=== PATIENT | male | born 1965 | race Two or more races ===

== ENCOUNTER 2025-03-30 14:24 | Inpatient (IN) | payer MEDICAID, OTHER ==
[~2025-03-30] VITALS: Ht 177.8 cm; Wt 74.9 kg
[2025-03-30 15:04] LABS: Hematocrit 43.3 % (41.0-53.0); Hemoglobin 15.0 g/dL (13.5-17.5); Mean Corpuscular Hemoglobin 33.7 pg (28.0-32.0); Mean Corpuscular Volume 97.2 fL (80.0-100.0); Nucleated Red Blood Cells % 0.0 %
[2025-03-30 15:07] LABS: Chloride 105 mmol/L (98-107); Potassium 4.3 mmol/L (3.5-5.1); Sodium 142 mmol/L (136-145)
--- NOTE | 2025-03-30 15:07 | ED.PDOC ---
HPI Comments 49-year-old male presents to the ED for chief complaint of palpitations started at 10:00 a.m. today while sitting down on his couch. Patient states palpitations are more notable when he is at rest however when he gets up in ambulance around, palpitations become less notable. Patient denies any past cardiac history, states he has no medical history in his not on any daily medication at this time. He denies any chest pain, shortness of breath, nausea, fever, chills, leg swelling. Chief Complaint: Palpitations Time Seen by MD: 14:40 Reviewed Notes: Nurses Notes, Medications, Allergies Allergies: Coded Allergies: NO KNOWN ALLERGIES (Unverified , 03/30/25) Information Source: Patient Mode of Arrival: Ambulatory Severity: Moderate Timing: Hours Duration: Since onset Onset: At Rest Cardiac Risk Factors: None PE Risk Factors: None History of: None Modifying Factors: Nothing Associated Signs and Symptoms: Palpitations Past Medical History PAST MEDICAL HISTORY: Denies Surgical History: Denies all surgeries Family History Family History: Reviewed,noncontributory to illness, No family hx of Cancer, No family hx of DM, No family hx of Heart allan, No family hx of HTN, No family hx ofKidney allan, No family hx of Liver allan, No family hx of Lung allan, No family hx of Stroke Social History Smoker: Non-Smoker Alcohol: Denies ETOH Use Drugs: Denies Drug Use Lives In: Home Constitutional: denies: chills, diaphoresis, fatigue, fever, malaise, sweats, weakness, others EENTM: denies: blurred vision, double vision, ear bleeding, ear discharge, ear drainage, ear pain, ear ringing, eye pain, eye redness, hearing loss, mouth pain, mouth swelling, nasal discharge, nose bleeding, nose congestion, nose pain, photophobia, tearing, throat pain, throat swelling, voice changes, others Respiratory: denies: cough, hemoptysis, orthopnea, SOB at rest, shortness of breath, SOB with excertion, stridor, wheezing, others Cardiovascular: reports: palpitations; denies: chest pain, dizzy spells, diaphoresis, Dyspnea on exertion, edema, irregular heart beat, left arm pain, lightheadedness, PND, syncope, others Gastrointestinal: denies: abdomen distended, abdominal pain, blood streaked bowels, constipated, diarrhea, dysphagia, difficulty swallowing, hematemesis, melena, nausea, poor appetite, poor fluid intake, rectal bleeding, rectal pain, vomiting, others Genitourinary: denies: burning, dysuria, flank pain, frequency, hematuria, incontinence, penile discharge, penile sore, pain, testicle pain, testicle swe lling, urgency, others Neurological: denies: dizziness, fainting, headache, left sided numbness, left sided weakness, numbness, paresthesia, pre-existing deficit, right sided numbness, right sided weakness, seizure, speech problems, tingling, tremors, weakness, others Musculoskeletal: denies: back pain, gout, joint pain, joint swelling, muscle pain, muscle stiffness, neck pain, others Integumetry: denies: bruises, change in color, change in hair/nails, dryness, laceration, lesions, lumps, rash, wounds, others Allergic/Immunocompromised: denies: Difficulty Healing, Frequent Infections, Hives, Itching, others Hematologic/Lymphatic: denies: anemia, blood clots, easy bleeding, easy bruising, swollen glands, others Endocrine: denies: excessive hunger, excessive sweating, excessive thirst, excessive urination, flushing, intolerance to cold, intolerance to heat, unexplained weight gain, unexplained weight loss, others Psychiatric: denies: anxiety, bipolar disorder, depression, hopeless, panic disorder, schizophrenia, sleepless, suicidal, others All Other Systems: Reviewed and Negative Physical Exam General Appearance: Moderate Distress HEENT: Normal ENT Inspection, Pharynx Normal, TMs Normal Neck: Full Range of Motion, Non-Tender, Normal, Normal Inspection Respiratory: Chest Non-Tender, Lungs Clear, No Accessory Muscle Use, No Respiratory Distress, Normal Breath Sounds Cardiovascular: No Edema, No JVD, No Murmur, No Gallop, Normal Peripheral Pulses, Regular Rate/Rhythm Breast Exam: Deferred Gastrointestinal: No Organomegaly, Non Tender, No Pulsatile Mass, Normal Bowel Sounds, Soft Genitalia: Deferred Pelvic: Deferred Rectal: Deferred Extremities: No calf tenderness, Normal capillary refill, Normal inspection, Normal range of motion, Non-tender, No pedal edema Musculoskeletal : Apperance: Normal Neurologic: Alert, pin maker II-XII nml as Tested, No Motor Deficits, Normal Affect, Normal Mood, No Sensory Deficits Cerebellar Function: Normal Reflexes: Normal Skin: Dry, Normal Color, Warm Peripheral Pulses: 3+ Radial (R), 3+ Radial (L) Lymphatic: No Adenopathy Was a procedure done? Was a procedure done?: No CP Differential Dx Differential Diagnosis: A-fib, A-Flutter, Angina, Anxiety / Panic Attack, Atrial Dysrhythmia, Digoxin Toxicity, Electrolyte Disorder, Sinus Tachycardia X-Ray, Labs, Meds, VS Vital Signs Date Time Temp Pulse Resp B/P (MAP) Pulse Ox O2 Delivery O2 Flow Rate FiO2 03/30/25 17:03 98.4 61 16 126/76 (93) 97 98.4 03/30/25 14:37 68 03/30/25 14:27 97.9 72 19 133/78 96 97.9 Lab Test 03/30/25 16:13 03/30/25 14:43 Range/Units Troponin I High Sensitivity 15 16 </=54 ng/L White Blood Count 5.4 4.4-10.8 10^3/uL Red Blood Count 4.46 L 4.5-5.90 10^6/uL Hemoglobin 15.0 13.5-17.5 g/dL Hematocrit 43.3 41.0-53.0 % Mean Corpuscular Volume 97.2 80.0-100.0 fL Mean Corpuscular Hemoglobin 33.7 H 28.0-32.0 pg Mean Corpuscular Hemoglobin Concent 34.6 32.0-36.0 g/dL Red Cell Distribution Width 12.8 11.8-14.3 % Platelet Count 203 140-450 10^3/uL Mean Platelet Volume 8.2 6.9-10.8 fL Neutrophils (%) (Auto) 48.7 37.0-80.0 % Lymphocytes (%) (Auto) 37.6 10.0-50.0 % Monocytes (%) (Auto) 10.3 0.0-12.0 % Eosinophils (%) (Auto) 1.8 0.0-7.0 % Basophils (%) (Auto) 1.6 0.0-2.0 % Neutrophils # (Auto) 2.6 1.6-8.6 10 ^3/uL Lymphocytes # (Auto) 2.0 0.4-5.4 10 ^3/uL Monocytes # (Auto) 0.6 0-1.3 10 ^3/uL Eosinophils # (Auto) 0.1 0-0.8 10 ^3/uL Basophils # (Auto) 0.1 0-0.2 10 ^3/uL Nucleated Red Blood Cells 0.0 % Sodium Level 142 136-145 mmol/L Potassium Level 4.3 3.5-5.1 mmol/L Chloride Level 105 98-107 mmol/L Carbon Dioxide Level 30 20-31 mmol/L Anion Gap 7 5-15 Blood Urea Nitrogen 16 9-23 mg/dL Creatinine 1.01 0.700-1.30 mg/dL Glomerular Filtration Rate Calc 91 >90 mL/min BUN/Creatinine Ratio 15.8 10.0-20.0 Serum Glucose 171 H 74-106 mg/dL Calcium Level 9.2 8.7-10.4 mg/dL Patient alert. Complaining of palpitation. Vitals stable. Cardiac marker within normal limits. Blood sugar elevated. Hemoglobin within normal limits. Establish intravenous access. Has risk factors for coronary artery disease. Propranolol. Explained to the patient that he will need further studies. Continue monitoring. Time of 1ST Reevaluation: 15:06 Reevaluation 1ST: Unchanged Patient Education/Counseling: Diagnosis, Treatment, Prognosis Family Education/Counseling: No Family Present SEPSIS Sepsis Screen Date sepsis recognized/suspect: Mar 30, 2025 Time Sepsis recognized/suspect: 143 Recent Procedure: No On Antibiotic Therapy: No Respiratory Rate >20: No Heart Rate >90: No Temp<36 C (96.8 F) or >38.3 C: No SBP <90 or MAP <65 mmHG: No New Acute Mental Status Change: No Is the patient on CPAP, BIPAP,: No Physician Orders Electrocardigram (03/30/25 14:41) Troponin-I Hs (03/30/25 17:53) Vital Signs Date Time Temp Pulse Resp B/P (MAP) Pulse Ox O2 Delivery O2 Flow Rate FiO2 03/30/25 17:03 98.4 61 16 126/76 (93) 97 98.4 03/30/25 14:37 68 03/30/25 14:27 97.9 72 19 133/78 96 97.9 Laboratory Tests Test 03/30/25 14:43 White Blood Count 5.4 10^3/uL (4.4-10.8) Departure 1 Departure Time of Disposition: 17:08 Impression: Primary Impression: Chest pain of unknown etiology Additional Impressions: Palpitations Uncontrolled diabetes mellitus Qualified Codes: E13.65 - Other specified diabetes mellitus with hyperglyc emia Disposition: 09 ADMITTED INPATIENT Admit to: Med Surg Condition: Guarded Critical Care Note Critical Care Time?: No Stability Stability form required: No Heart Score Heart Score: Heart Score Response (Comments) Value History Slightly Suspicious 0 EKG Normal 0 Age 45-64 1 Risk Factors >3 or Hx ASHD 2 Troponin Normal limit 0 Total 3 I personally scribed for TATYANA CHUN MD ([email or web address]) on 03/30/25 at 15:07. Electronically submitted by Shannon Ruiz ([facility]). TATYANA CHUN MD Mar 30, 2025 15:07
[2025-03-30 15:08] LABS: Anion Gap 7 (5-15); Calcium 9.2 mg/dL (8.7-10.4); Carbon Dioxide 30 mmol/L (20-31)
[2025-03-30 15:13] LABS: BUN/Creatinine Ratio 15.8 (10.0-20.0); Blood Urea Nitrogen 16 mg/dL (9-23)
[2025-03-30 15:17] LABS: Glucose 171 mg/dL (74-106)
[2025-03-30] MEDS ORDERED: ONDANSETRON HCL 4 MG/2 ML VIAL IV PRN (20:45)
[2025-03-30] MEDS ORDERED: ACETAMINOPHEN 325 MG TAB PO PRN (20:45)
[2025-03-30] MEDS ORDERED: DOCUSATE SOD 100 MG CAP PO PRN (20:45)
[2025-03-30] MEDS ORDERED: HYDROcodone-ACET 5/325MG TAB PO PRN (20:45)
[2025-03-30] MEDS ORDERED: NITROGLYCERIN 0.4 MG SL TAB SL PRN (21:15)
[2025-03-30] MEDS ORDERED: MORPHINE SULFATE INJ 2 MG/ml SYRG IV PRN (21:15)
--- NOTE | 2025-03-30 21:16 | DVHHP2 ---
History of Present Illness Reason for Visit: Palpitations History of Present Illness The patient is a 49 year male who denies past medical history presented to [facility] ED with complaint of palpitations associated with chest pain. Patient reports palpitations are more notable when he is at rest however when he gets up in ambulance around, palpitations become less notable. Patient was seen and evaluated in the ED, laboratory data shows WBC 5.4, platelets 203, sodium 142, potassium 4.3, BUN 16, creatinine 1.01, GFR 91, glucose 171, hemoglobin A1c 7.2, calcium 9.2, troponin 60, blood pressure 118/73, heart rate 60, temperature 98.2 F, O2 saturation 97% on room air. Patient was found to have new onset type 2 diabetes mellitus. Please see medication orders section in the computer. On my assessment, patient denied chest pain at this moment, no headache, dizziness, diaphoresis, shortness of breaths, no abdominal pain, diarrhea, nausea, vomiting, fever, no chills. Patient was admitted for further evaluation and medical management. Past Medical History Denies past medical history Past Surgical History Denies all surgeries Family History Reviewed, contributory to the management of this case; father and mother has for diabetes mellitus. Past Social History The patient lives at home, denies smoking, alcohol or illicit drugs abuse. Review of Systems Constitutional: No: Fever, Chills, Sweats, Weakness, Malaise, Other Eyes: No: Pain, Vision change, Conjunctivae inflammation, Eyelid inflammation, Other, Redness ENT: No: Ear pain, Ear discharge, Nose pain, Nose discharge, Nose congestion, Mouth pain, Mouth swelling, Throat pain, Throat swelling, Other Respiratory: No: Cough, Dry, Shortness of breath, SOB with excertion, Wheezing, Hemoptysis, Pleuritic Pain, Sputum, Wheezing, Other Cardiovascular: Chest Pain, Palpitations; No: Orthopnea, Paroxysmal Noc. Dyspnea, Edema, Lt Headedness, Other Gastrointestinal: No: Nausea, Vomiting, Abdominal Pain, Diarrhea, Constipation, Melena, Hematochezia, Other Genitourinary: No Dysuria, No Frequency, No Incontinence, No Hematuria, No Re tention, No Other Musculoskeletal: No: other, neck pain, shoulder pain, arm pain, back pain, hand pain, leg pain, foot pain Skin: No: Rash, Lesions, Jaundice, Bruising, Other Neurological: No: Weakness, Numbness, Incoordination, Change in speech, Confusion, Seizures, Other Allergies: Coded Allergies: NO KNOWN ALLERGIES (Unverified , 03/30/25) Medications Current Medications Medications Dose Ordered Sig/Enoch Route Start Time Stop Time Status Last Admin Dose Admin Sodium Chloride 10 ml Q8HR IV 03/30/25 22:00 Acetaminophen/ Hydrocodone Bitart 1 tab Q4HP PRN PO 03/30/25 20:45 Ondansetron HCl 4 mg Q4HP PRN IV 03/30/25 20:45 Docusate Sodium 100 mg BIDPRN PRN PO 03/30/25 20:45 Acetaminophen 650 mg Q6HP PRN PO 03/30/25 20:45 Exam Vital Signs Vital Signs Date Time Temp Pulse Resp B/P (MAP) Pulse Ox O2 Delivery O2 Flow Rate FiO2 03/30/25 20:29 98.2 59 16 118/73 (88) 96 98.2 General Appearance: Alert, Oriented X3, Cooperative, No acute distress HEENT: Atraumatic, PERRLA, EOMI, Mucous membr. moist/pink Respiratory: Clear to auscultation, Normal air movement Cardiovascular: Regular rate, Normal S1, Normal S2, No murmurs Abdominal: Normal bowel sounds, Soft, No tenderness, No hepatospenomegaly, No masses Extremities: No clubbing, No cyanosis, No edema, Normal pulses, No tenderness/swelling Skin: No rashes, No significant lesion Neuro: Normal gait, Normal speech, Strength at 5/5 X4 ext, Normal tone, Sensation intact, Cranial nerves 3-12 NL, Reflexes 2+ Psych/Mental Status: Mental status NL, Mood NL Labs/Xrays Labs Test 03/30/25 18:09 03/30/25 14:43 Range/Units Troponin I High Sensitivity 16 </=54 ng/L White Blood Count 5.4 4.4-10.8 10^3/uL Red Blood Count 4.46 L 4.5-5.90 10^6/uL Hemoglobin 15.0 13.5-17.5 g/dL Hematocrit 43.3 41.0-53.0 % Mean Corpuscular Volume 97.2 80.0-100.0 fL Mean Corpuscular Hemoglobin 33.7 H 28.0-32.0 pg Mean Corpuscular Hemoglobin Concent 34.6 32.0-36.0 g/dL Red Cell Distribution Width 12.8 11.8-14.3 % Platelet Count 203 140-450 10^3/uL Mean Platelet Volume 8.2 6.9-10.8 fL Neutrophils (%) (Auto) 48.7 37.0-80.0 % Lymphocytes (%) (Auto) 37.6 10.0-50.0 % Monocytes (%) (Auto) 10.3 0.0-12.0 % Eosinophils (%) (Auto) 1.8 0.0-7.0 % Basophils (%) (Auto) 1.6 0.0-2.0 % Neutrophils # (Auto) 2.6 1.6-8.6 10 ^3/uL Lymphocytes # (Auto) 2.0 0.4-5.4 10 ^3/uL Monocytes # (Auto) 0.6 0-1.3 10 ^3/uL Eosinophils # (Auto) 0.1 0-0.8 10 ^3/uL Basophils # (Auto) 0.1 0-0.2 10 ^3/uL Nucleated Red Blood Cells 0.0 % Sodium Level 142 136-145 mmol/L Potassium Level 4.3 3.5-5.1 mmol/L Chloride Level 105 98-107 mmol/L Carbon Dioxide Level 30 20-31 mmol/L Anion Gap 7 5-15 Blood Urea Nitrogen 16 9-23 mg/dL Creatinine 1.01 0.700-1.30 mg/dL Glomerular Filtration Rate Calc 91 >90 mL/min BUN/Creatinine Ratio 15.8 10.0-20.0 Serum Glucose 171 H 74-106 mg/dL Hemoglobin A1c 7.2 H <5.7 % A1C Calcium Level 9.2 8.7-10.4 mg/dL SEPSIS Sepsis Screen Date sepsis recognized/suspect: Mar 30, 2025 Time Sepsis recognized/suspect: 1431 Recent Procedure: No On Antibiotic Therapy: No Respiratory Rate >20: No Heart Rate >90: No Temp<36 C (96.8 F) or >38.3 C: No SBP <90 or MAP <65 mmHG: No New Acute Mental Status Change: No Is the patient on CPAP, BIPAP,: No Physician Orders Electrocardigram (03/30/25 14:41) Allergies (03/30/25 20:35) Code Status (03/30/25 20:35) Sodium Chloride Lock (Saline Lock Ns) (03/30/25 22:00) Oxygen Per Hour (03/30/25 20:35) Hydrocodone-Acet 5/325mg Tab ([place] 5/32 (03/30/25 20:45) Ondansetron Hcl (Zofran) (03/30/25 20:45) Docusate Sodium Capsule (Colace Capsule) (03/30/25 20:45) Fall Risk Precautions In Place QSHIFT (03/30/25 20:35) Complete Blood Count (03/31/25 04:00) Comprehensive Metabolic Panel (03/31/25 04:00) Cardiac Diet-2gna,Lofat,Lochol (03/31/25 Breakfast) Condition: Serious (03/30/25 20:35) Acetaminophen Tablet (Tylenol Tablet) (03/30/25 20:45) Maintain Bed Rest (03/30/25 20:35) Sequential Compression Device (03/30/25 ) Admit (03/30/25 21:14) Nitroglycerin Sublingual (Ntrostat Subli (03/30/25 21:15) Morphine Sulfate Injection (03/30/25 21:15) Stat Ekg For Chest Pain (03/30/25 21:14) Notify Md Of Changes From Base (03/30/25 21:14) Food Beverage Supervisor For 24 Hours (03/30/25 21:14) Emergency Dysrhythmia Protocol (03/30/25 21:14) Rhythm Strips Once Every Shift (03/30/25 21:14) Oxygen By Nasal Cannula (03/30/25 21:14) Vital Signs Date Time Temp Pulse Resp B/P (MAP) Pulse Ox O2 Delivery O2 Flow Rate FiO2 03/30/25 20:29 98.2 59 16 118/73 (88) 96 98.2 03/30/25 17:03 98.4 61 16 126/76 (93) 97 98.4 03/30/25 14:37 68 03/30/25 14:27 97.9 72 19 133/78 96 97.9 Laboratory Tests Test 03/30/25 14:43 White Blood Count 5.4 10^3/uL (4.4-10.8) Assessment/Plan Assessment/Plan Chest pain of unknown etiology New onset type 2 diabetes mellitus Palpitations Uncontrolled diabetes mellitus Plan 1. Admit to telemetry unit 2. Breathing treatment 3. Pain control management 4. Management of fluids and electrolytes 5. Consultation for hospitalist 6. Diagnostic tests chest x-ray 7. DVT prophylaxis-on SCDs 8. Repeat labs CBC, CMP in a.m. 9. Continue with current medical management 10. Treatment plan discussed with patient/daughter and RN. Patient/daughter verbalized understanding. Plan discussed with: Patient, Other (RN) My Orders Orders - BRISA BRAR DNP Procedure Category Date Status Time Allergies MARYLIN 03/30/25 In Process 20:35 Code Status CODE 03/30/25 Transmitted 20:35 Sodium Chloride Lock PHA 03/30/25 In Process (Saline Lock Ns) 22:00 Oxygen Per Hour RT 03/30/25 Transmitted 20:35 Hydrocodone-Acet PHA 03/30/25 In Process 5/325mg Tab ([place] 20:45 Ondansetron Hcl PHA 03/30/25 In Process (Zofran) 20:45 Docusate Sodium PHA 03/30/25 In Process Capsule (Colace 20:45 Fall Risk Precautions [facility] 03/30/[address] 20:35 Complete Blood Count LAB 03/31/25 Verified 04:00 Comprehensive LAB 03/31/25 Verified Metabolic Panel 04:00 Cardiac DIET 03/31/25 Transmitted Diet-2gna,Lofat,Lochol Breakfast Condition: Serious MARYLIN 03/30/25 In Process 20:35 Acetaminophen Tablet PHA 03/30/25 In Process (Tylenol Tablet) 20:45 Maintain Bed Rest MARYLIN 03/30/25 In Process 20:35 Sequential M[place]LIN 03/30/25 In Process Compression Device Admit ADMIT 03/30/25 Verified 21:14 Nitroglycerin [facility] 03/30/25 Verified Sublingual (Ntrostat 21:15 Morphine Sulfate PHA 03/30/25 Verified Injection 21:15 Stat Ekg For Chest [facility] 03/30/25 Verified Pain 21:14 Notify Md Of Changes [facility] 03/30/25 Verified From Base 21:14 Food Beverage Supervisor For [facility] 03/30/25 Verified 24 Hours 21:14 Emergency Dysrhythmia [facility] 03/30/25 Verified Protocol 21:14 Rhythm Strips Once [facility] 03/30/25 Verified Every Shift 21:14 Oxygen By Nasal RT 03/30/25 Verified Cannula 21:14 Problem List: (1) Chest pain of unknown etiology (2) New onset type 2 diabetes mellitus (3) Palpitations (4) Uncontrolled diabetes mellitus Date of Service: Mar 30, 2025 Billing Provider: BRISA BRAR DNP Common Visit Codes: [id number] INP/OBS CARE (HIGH) BRISA BRAR DNP Mar 30, 2025 21:16
[2025-03-30] MEDS: SODIUM CHLOR 0.9% PF (SALINE LOCK) 10ML VIAL/SYR IV SCH (22:00)
[2025-03-31] VITALS (10 sets, daily range): BP systolic 101–124; BP diastolic 61–77; PULSE 53–76; RESP 14–18; TEMP 97.3–98.7; O2SAT 97–99
[2025-03-31] MEDS ORDERED: DEXTROSE (50%) 50ML SYRG IV PRN (03:45)
[2025-03-31] MEDS: ACCU-CHEK COMFORT CURVE STRIP VI SCH (06:30)
[2025-03-31] MEDS: InsuLIN REG 1unit/0.01ml Soln (100units/ml) SC SCH ×2 (06:30→21:05)
[2025-03-31 07:21] LABS: Hematocrit 41.9 % (41.0-53.0); Hemoglobin 14.6 g/dL (13.5-17.5); Mean Corpuscular Hemoglobin 34.0 pg (28.0-32.0); Mean Corpuscular Volume 97.5 fL (80.0-100.0); Nucleated Red Blood Cells % 0.1 %
[2025-03-31 07:36] LABS: Alanine Aminotransferase 13 U/L (7-40); Albumin 3.7 g/dL (3.2-4.8); Alkaline Phosphatase 90 U/L (46-116); Anion Gap 8 (5-15); BUN/Creatinine Ratio 16.1 (10.0-20.0); Blood Urea Nitrogen 15 mg/dL (9-23); Calcium 9.0 mg/dL (8.7-10.4); Carbon Dioxide 29 mmol/L (20-31); Chloride 105 mmol/L (98-107); Potassium 4.1 mmol/L (3.5-5.1); Sodium 142 mmol/L (136-145); Total Protein 6.2 g/dL (5.7-8.2)
[2025-03-31 07:40] LABS: Bilirubin, Total 1.6 mg/dL (0.2-1.0); Glucose 146 mg/dL (74-106)
--- NOTE | 2025-03-31 17:53 | DVHSR ---
APPROVED REPORT EXAM: Two-dimensional and M-mode echocardiogram with Doppler and color Doppler. Blood Pressure: 115/73 mmHg INDICATION Chest Pain RISK FACTORS Height: 5'10", Weight: 165 DIMENSIONS LVDd 5.0 (3.8-5.7cm) LA (2D) 3.5 (1.9-4.0cm) Aortic Root 3.7 (2.0-3.7cm) LVDs 3.2 (2.5-4.0cm) LA (MM) (1.9-4.0cm) Aortic Cusp Exc 1.9 (1.5-2.0cm) EF (%) 65.0 (55-70%) Rt. Atrium 3.9 (1.9-4.0cm) Asc. Aorta cm IVSd 1.0 (0.7-1.1cm) RV (D) 3.4 (1.8-2.4cm) PWd 0.9 (0.7-1.1cm) Mitral Valve Mitral Mitral Stenosis E wave 0.76m/s MV Mean GR. mmHg A wave 0.64m/s MV Peak GR. mmHg E/A ratio 1.2 2D MVA cm2 DECEL Time 226ms PRESS 1/2 Time ms Aortic Valve Aortic Valve Aortic Stenosis V1 1.10m/s AO Mean GR. 4mmHg V2 1.37m/s AO Peak GR. 8mmHg LVOT Diameter 2.2 (1.8-2.4cm) Doppler NILAM 3.05cm2 Pulmonic Valve V2 1.00m/s Tricuspid Valve TR Velocity 2.39m/s RVSP 26mmHg Conclusion NORMAL LV EF IS 65% NORMAL VALVES NORMAL RV FUNCTION NO EFFUSION
--- NOTE | 2025-03-31 18:40 | DVHPN2 ---
Subjective Clinically stable. Shortness for breath chest pain and leg swelling have improved. Patient apparently stopped taking his heart medications for about six months. Patient underwent a coronary artery bypass graft surgery last year. Changes from previous H/P or p: No Changes Eyes: No Pain, No Vision change, No Conjunctivae inflammation, No Eyelid inflammation, No Other, No Redness ENT: No Ear pain, No Ear discharge, No Nose pain, No Nose discharge, No Nose congestion, No Mouth pain, No Mouth swelling, No Throat pain, No Throat swelling, No Other Cardiovascular: Chest Pain, Palpitations; No Orthopnea, No Paroxysmal Noc. Dyspnea, No Edema, No Lt Headedness, No Other Respiratory: No Cough, No Dry, No Shortness of breath, No SOB with excertion, No Wheezing, No Hemoptysis, No Pleuritic Pain, No Sputum, No Other Gastrointestinal: No Nausea, No Vomiting, No Abdominal Pain, No Diarrhea, No Constipation, No Melena, No Hematochezia, No Other Genitourinary: No Dysuria, No Frequency, No Incontinence, No Hematuria, No Retention, No Other Musculoskeletal: No other, No neck pain, No shoulder pain, No arm pain, No back pain, No hand pain, No leg pain, No foot pain Skin: No Rash, No Lesions, No Jaundice, No Bruising, No Other Objective Vitals Vital Signs Date Time Temp Pulse Resp B/P (MAP) Pulse Ox O2 Delivery O2 Flow Rate FiO2 03/31/25 17:09 98.1 54 16 115/70 (85) 97 98.1 03/31/25 08:00 Room Air* 0 21 Intake/Output Intake and Output 03/31/25 07:00 Intake Total 0 ml Balance 0 ml Intake Oral 0 ml Exam Alert awake oriented x3. Comfortable in bed without complaints. HEENT neck supple no JVD. Heart regular rate and rhythm S1-S2. Lungs fair air movement without rales wheezes. Abdomen soft nontender positive bowel sounds. Extremities improved edema around the ankles positive pulses. Medications Current Medications Medications Dose Ordered Sig/Enoch Route Start Time Stop Time Status Last Admin Dose Admin Sodium Chloride 10 ml Q8HR IV 03/30/25 22:00 03/31/25 14:36 10 ML Acetaminophen/ Hydrocodone Bitart 1 tab Q4HP PRN PO 03/30/25 20:45 Ondansetron HCl 4 mg Q4HP PRN IV 03/30/25 20:45 Docusate Sodium 100 mg BIDPRN PRN PO 03/30/25 20:45 Acetaminophen 650 mg Q6HP PRN PO 03/30/25 20:45 Diagnostic Test (Pha) 1 strip ACHS 03/31/25 07:00 03/31/25 16:53 1 STRIP Insulin Human Regular HS SC 03/31/25 22:00 Insulin Human Regular AC SC 03/31/25 07:00 03/31/25 12:20 2 UNITS Dextrose 50 ml UD PRN IV 03/31/25 03:45 Laboratory Results Laboratory Tests 03/31/25 05:59 Chemistry Test 03/31/25 05:59 Albumin 3.7 g/dL (3.2-4.8) Calcium Level 9.0 mg/dL (8.7-10.4) Total Protein 6.2 g/dL (5.7-8.2) Coagulation Test 03/31/25 17:57 D-Dimer, Quantitative Pending LFT Test 03/31/25 05:59 Alanine Aminotransferase (ALT) 13 U/L (7-40) Alkaline Phosphatase 90 U/L (46-116) Aspartate Amino Transferase (AST) 13 U/L (13-40) Total Bilirubin 1.6 mg/dL (0.2-1.0) H Assessment/Plan Assessment/Plan Patient is clinically improved. I have reviewed his cardiac medications that he has at bedside. Patient is advised to resume these and be compliant with his cardiac medications including diuretics. Continue present management overnight if he remains stable consider discharge home tomorrow. Discussed with the patient along with the nurse at bedside regarding care plan. Plan discussed with: Patient, Other My Orders Orders - JASPAL ELIAS MD Procedure Category Date Status Time D-Dimer LAB 03/31/25 In Process 15:30 Echo 2d Mode Cardiac US 03/31/25 Resulted DOP 15:30 * Cardiology Consult CONS 03/31/25 Transmitted 15:30 Problem List: (1) Palpitations (2) Uncontrolled diabetes mellitus (3) Chest pain of unknown etiology (4) New onset type 2 diabetes mellitus Date of Service: Mar 31, 2025 Billing Provider: JASPAL ELIAS MD Common Visit Codes: [id number] INP/OBS CARE(HIGH) JASPAL ELIAS MD Mar 31, 2025 18:40
--- NOTE | 2025-03-31 19:59 | DVHINCON2 ---
Date of service: Mar 31, 2025 Referring Physician Juan Reason for Consultation Chest pain History of Present Illness This is a 49 year male who denies any past medical history presented to the ED with a complaint of palpitations associated with chest pain. Patient reports palpitations are more notable when he is at rest however when he gets up in ambulance around, palpitations become less notable. 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 Patient was admitted to the hospital. I am asked to consult on this patient. Family History: Diabetes mellitus G8 BROTHER Allergies: Coded Allergies: NO KNOWN ALLERGIES (Unverified , 03/30/25) Home Meds No Active Prescriptions or Reported Meds Current Medications Current Medications Medications (Trade) Dose Ordered Sig/Enoch Route PRN Reason Start Time Stop Time Status Last Admin Sodium Chloride (Saline Lock Ns) 10 ml Q8HR IV 03/30/25 22:00 03/31/25 14:36 Acetaminophen/ Hydrocodone Bitart ([place] 5/325MG Tab) 1 tab Q4HP PRN PO MODERATE PAIN (4-6 PAIN SCALE) 03/30/25 20:45 Ondansetron HCl (Zofran) 4 mg Q4HP PRN IV NAUSEA / VOMITING 03/30/25 20:45 Docusate Sodium (Colace Capsule) 100 mg BIDPRN PRN PO FOR CONSTIPATION 03/30/25 20:45 Acetaminophen (Tylenol Tablet) 650 mg Q6HP PRN PO PAIN SCALE 1-3 OR TEMP>100.4 03/30/25 20:45 Nitroglycerin (Ntrostat Sublingual) 0.4 mg Q5MINP PRN SL FOR CHEST PAIN 03/30/25 21:15 03/30/25 23:49 DC Morphine Sulfate 2 mg Q30M PRN IV FOR CHEST PAIN 03/30/25 21:15 03/30/25 23:48 DC Diagnostic Test (Pha) (Accu-Chek Comfort Curve T) 1 strip ACHS 03/31/25 07:00 03/31/25 16:53 Insulin Human Regular (InsuLIN R) HS SC 03/31/25 22:00 Insulin Human Regular (InsuLIN R) AC SC 03/31/25 07:00 03/31/25 12:20 Dextrose 50 ml UD PRN IV Blood Sugar LESS THAN 60 03/31/25 03:45 Review of Systems Constitutional: denies: chills, diaphoresis, fatigue, fever, malaise, sweats, weakness, others EENTM: denies: blurred vision, double vision, ear bleeding, ear discharge, ear drainage, ear pain, ear ringing, eye pain, eye redness, hearing loss, mouth pain, mouth swelling, nasal discharge, nose bleeding, nose congestion, nose pain, photophobia, tearing, throat pain, throat swelling, voice changes, others Respiratory: denies: cough, hemoptysis, orthopnea, SOB at rest, shortness of breath, SOB with excertion, stridor, wheezing, others Cardiovascular: reports: palpitations; denies: chest pain, dizzy spells, diaphoresis, Dyspnea on exertion, edema, irregular heart beat, left arm pain, lightheadedness, PND, syncope, others Gastrointestinal: denies: abdomen distended, abdominal pain, blood streaked bowels, constipated, diarrhea, dysphagia, difficulty swallowing, hematemesis, melena, nausea, poor appetite, poor fluid intake, rectal bleeding, rectal pain, vomiting, others Genitourinary: denies: burning, dysuria, flank pain, frequency, hematuria, inco ntinence, penile discharge, penile sore, pain, testicle pain, testicle swelling, urgency, others Neurological: denies: dizziness, fainting, headache, left sided numbness, left sided weakness, numbness, paresthesia, pre-existing deficit, right sided numbness, right sided weakness, seizure, speech problems, tingling, tremors, weakness, others Musculoskeletal: denies: back pain, gout, joint pain, joint swelling, muscle pain, muscle stiffness, neck pain, others Integumetry: denies: bruises, change in color, change in hair/nails, dryness, laceration, lesions, lumps, rash, wounds, others Allergic/Immunocompromised: denies: Difficulty Healing, Frequent Infections, Hives, Itching, others Hematologic/Lymphatic: denies: anemia, blood clots, easy bleeding, easy bruising, swollen glands, others Endocrine: denies: excessive hunger, excessive sweating, excessive thirst, excessive urination, flushing, intolerance to cold, intolerance to heat, unexplained weight gain, unexplained weight loss, others Psychiatric: denies: anxiety, bipolar disorder, depression, hopeless, panic disorder, schizophrenia, sleepless, suicidal, others All Other Systems: Reviewed and Negative Vital Signs Vital Signs Date Time Temp Pulse Resp B/P (MAP) Pulse Ox O2 Delivery O2 Flow Rate FiO2 03/31/25 17:09 98.1 54 16 115/70 (85) 97 98.1 03/31/25 08:00 Room Air* 0 21 Physical Exam GENERAL: Alert and oriented x 3. No acute distress. EYES: PERRL, EOMI. Anicteric. HENT: Moist mucous membranes. LUNGS: Clear to auscultation bilaterally. CARDIOVASCULAR: Regular rate and rhythm. ABDOMEN: Soft, nontender and nondistended. EXTREMITIES: No edema. NEUROLOGIC: No focal neurological deficits. SKIN: Warm, dry. Labs/Diagnostic Data Labs Test 03/31/25 17:57 03/31/25 16:51 03/31/25 05:59 03/30/25 14:43 Range/Units POC Glucose 117 H 70-106 mg/dl White Blood Count 5.5 4.4-10.8 10^3/uL Red Blood Count 4.30 L 4.5-5.90 10^6/uL Hemoglobin 14.6 13.5-17.5 g/dL Hematocrit 41.9 41.0-53.0 % Mean Corpuscular Volume 97.5 80.0-100.0 fL Mean Corpuscular Hemoglobin 34.0 H 28.0-32.0 pg Mean Corpuscular Hemoglobin Concent 34.9 32.0-36.0 g/dL Red Cell Distribution Width 12.9 11.8-14.3 % Platelet Count 182 140-450 10^3/uL Mean Platelet Volume 8.2 6.9-10.8 fL Neutrophils (%) (Auto) 51.7 37.0-80.0 % Lymphocytes (%) (Auto) 33.6 10.0-50.0 % Monocytes (%) (Auto) 11.0 0.0-12.0 % Eosinophils (%) (Auto) 2.6 0.0-7.0 % Basophils (%) (Auto) 1.1 0.0-2.0 % Neutrophils # (Auto) 2.8 1.6-8.6 10 ^3/uL Lymphocytes # (Auto) 1.8 0.4-5.4 10 ^3/uL Monocytes # (Auto) 0.6 0-1.3 10 ^3/uL Eosinophils # (Auto) 0.1 0-0.8 10 ^3/uL Basophils # (Auto) 0.1 0-0.2 10 ^3/uL Nucleated Red Blood Cells 0.1 % Sodium Level 142 136-145 mmol/L Potassium Level 4.1 3.5-5.1 mmol/L Chloride Level 105 98-107 mmol/L Carbon Dioxide Level 29 20-31 mmol/L Anion Gap 8 5-15 Blood Urea Nitrogen 15 9-23 mg/dL Creatinine 0.93 0.700-1.30 mg/dL Glomerular Filtration Rate Calc 94 >90 mL/min BUN/Creatinine Ratio 16.1 10.0-20.0 Serum Glucose 146 H 74-106 mg/dL Calcium Level 9.0 8.7-10.4 mg/dL Total Bilirubin 1.6 H 0.2-1.0 mg/dL Aspartate Amino Transferase (AST) 13 13-40 U/L Alanine Aminotransferase (ALT) 13 7-40 U/L Alkaline Phosphatase 90 46-116 U/L Total Protein 6.2 5.7-8.2 g/dL Albumin 3.7 3.2-4.8 g/dL Hemoglobin A1c 7.2 H <5.7 % A1C Assessment Chest pain of unknown etiology. New onset type 2 diabetes mellitus. Palpitations. Uncontrolled diabetes mellitus. Plan/Recommendation I agree with your ongoing assessment and care of plan. Echocardiogram. [place] for pain management. Additional plan as per the hospital course. A total of 45 minutes was spent reviewing the patient record, examining the patient, making a diagnostic and therapeutic plan, discussing this plan with medical personnel, following up on diagnostic studies and following the patient for clinical stability excluding any and all procedures. At least 50% of this time was spent in direct, [id number] contact. Plan discussed with: Patient SELINA OCHOA MD Mar 31, 2025 18:20
[2025-04-01] VITALS (8 sets, daily range): BP systolic 111–121; BP diastolic 67–83; PULSE 52–71; RESP 16–18; TEMP 97.8–98.6; O2SAT 97–99
--- NOTE | 2025-04-01 10:09 | ECG ---
[facility] Test Date: 2025-03-30 Test Time: 14:37:38 Pat Name: RAKESH MORLEY Department: Room: 0215T A Gender: M Insurance Territory Manager: SAMANTHA : 1965 Requested By: TATYANA CHUN Order Number: [id number] Reading MD: Power Bullard Measurements Intervals [place] Rate: 68 P: 77 CA: 148 QRS: 67 QRSD: 92 T: 9 QT: 375 QTc: 399 Interpretive Statements Sinus rhythm Baseline wander in lead(s) V4 Electronically Signed On 04-04-2025 17:25:35 PST by Power Bullard Please click the below link to view image of tracing.
[2025-04-01] MEDS ORDERED: DEXTROSE (50%) 50ML SYRG IV PRN ×2 (15:15)
[2025-04-01] MEDS: InsuLIN REG 1unit/0.01ml Soln (100units/ml) SC SCH ×2 (17:00→22:17)
[2025-04-01] MEDS ORDERED: ACCU-CHEK COMFORT CURVE STRIP VI SCH (17:00)
--- NOTE | 2025-04-01 17:03 | DVHPN2 ---
Subjective Overnight events noted. Patient's blood sugar was 240 was given regular 4 units overnight his blood sugar dropped to 70s. We will watch him one more night with a low-dose sliding scale. Changes from previous H/P or p: No Changes Eyes: No Pain, No Vision change, No Conjunctivae inflammation, No Eyelid inflammation, No Other, No Redness ENT: No Ear pain, No Ear discharge, No Nose pain, No Nose discharge, No Nose congestion, No Mouth pain, No Mouth swelling, No Throat pain, No Throat swelling, No Other Cardiovascular: Chest Pain, Palpitations; No Orthopnea, No Paroxysmal Noc. Dyspnea, No Edema, No Lt Headedness, No Other Respiratory: No Cough, No Dry, No Shortness of breath, No SOB with excertion, No Wheezing, No Hemoptysis, No Pleuritic Pain, No Sputum, No Other Gastrointestinal: No Nausea, No Vomiting, No Abdominal Pain, No Diarrhea, No Constipation, No Melena, No Hematochezia, No Other Genitourinary: No Dysuria, No Frequency, No Incontinence, No Hematuria, No Retention, No Other Musculoskeletal: No other, No neck pain, No shoulder pain, No arm pain, No back pain, No hand pain, No leg pain, No foot pain Skin: No Rash, No Lesions, No Jaundice, No Bruising, No Other Objective Vitals Vital Signs Date Time Temp Pulse Resp B/P (MAP) Pulse Ox O2 Delivery O2 Flow Rate FiO2 04/01/25 13:00 98.4 61 18 116/67 (83) 98 98.4 04/01/25 08:00 Room Air* 0 21 Intake/Output Intake and Output 04/01/25 07:00 Intake Total 2725 ml Balance 2725 ml Intake Oral 2725 ml # Voids 9 # Bowel Movements 3 Exam HEENT pupils are reactive Neck is supple CV is S1-S2 regular rate and rhythm Respiratory diminished breath sounds bases GI positive bowel sound Extremity no edema AD TAKER no motor deficit. Medications Current Medications Medications Dose Ordered Sig/Enoch Route Start Time Stop Time Status Last Admin Dose Admin Sodium Chloride 10 ml Q8HR IV 03/30/25 22:00 04/01/25 15:05 10 ML Acetaminophen/ Hydrocodone Bitart 1 tab Q4HP PRN PO 03/30/25 20:45 Ondansetron HCl 4 mg Q4HP PRN IV 03/30/25 20:45 Docusate Sodium 100 mg BIDPRN PRN PO 03/30/25 20:45 Acetaminophen 650 mg Q6HP PRN PO 03/30/25 20:45 Insulin Human Regular AC SC 04/01/25 17:00 Dextrose 50 ml UD PRN IV 04/01/25 15:15 Diagnostic Test (Pha) 1 strip ACHS 04/01/25 17:00 Insulin Human Regular HS SC 04/01/25 22:00 Laboratory Results Laboratory Tests 03/31/25 05:59 Coagulation Test 03/31/25 17:57 D-Dimer, Quantitative 0.32 mg/L FEU (0.0-0.49) Assessment/Plan Assessment/Plan 59-year-old male with who initially presented to the hospital with a chest pain found to have 1. chest pain ruled out [place] 2. New onset of diabetes mellitus type 2 3. Episode of hypoglycemia with a moderate dose sliding scale 4. Uncontrolled diabetes mellitus type 2 -continue tele monitoring, decreased insulin sliding scale from moderate to low- dose sliding scale, we will discharge the patient on metformin in a.m.. Daughters were updated at bedside. Plan discussed with: Patient, Daughter My Orders Orders - KIRILL LEVY MD Procedure Category Date Status Time Insulin R (Human) PHA 04/01/25 In Process (Insulin R) 17:00 Dextrose 50% Syringe PHA 04/01/25 In Process 15:15 Glucose Blood PHA 04/01/25 In Process (Accu-Chek Comfort 17:00 Insulin R (Human) PHA 04/01/25 In Process (Insulin R) 22:00 Problem List: (1) Palpitations (2) Uncontrolled diabetes mellitus (3) Chest pain of unknown etiology (4) New onset type 2 diabetes mellitus Date of Service: Apr 01, 2025 Billing Provider: KIRILL LEVY MD Common Visit Codes: [id number] INP/OBS CARE(HIGH) KIRILL LEVY MD Apr 01, 2025 17:03
[2025-04-01] MEDS: ACCU-CHEK COMFORT CURVE STRIP VI SCH (17:16)
[2025-04-01] MEDS ORDERED: InsuLIN REG 1unit/0.01ml Soln (100units/ml) SC SCH (22:00)
--- NOTE | 2025-04-01 22:41 | DVHPN2 ---
Progress Note - Dictate Date Seen: Apr 01, 2025 Medical Necessity Reason Pt with a Central, PICC or Fol: No Subjective Patient was seen and evaluated in follow up. Patients BS elevated in the 240s overnight. Echocardiogram shows LV EF of 65%. Telemetry reviewed. vital signs Vital Sign Date Time Temp Pulse Resp B/P (MAP) Pulse Ox O2 Delivery O2 Flow Rate FiO2 04/01/25 20:00 Room Air* 0 21 04/01/25 16:58 98.3 52 18 111/75 (87) 97 98.3 Total Intake and Output 03/31/25 03/31/25 04/01/25 15:00 23:00 07:00 Intake Total 1125 ml 1600 ml Balance 1125 ml 1600 ml medications Current Medications Medications Dose Ordered Sig/Enoch Route Start Time Stop Time Status Last Admin Dose Admin Sodium Chloride 10 ml Q8HR IV 03/30/25 22:00 04/01/25 22:17 10 ML Acetaminophen/ Hydrocodone Bitart 1 tab Q4HP PRN PO 03/30/25 20:45 Ondansetron HCl 4 mg Q4HP PRN IV 03/30/25 20:45 Docusate Sodium 100 mg BIDPRN PRN PO 03/30/25 20:45 Acetaminophen 650 mg Q6HP PRN PO 03/30/25 20:45 Insulin Human Regular AC SC 04/01/25 17:00 Dextrose 50 ml UD PRN IV 04/01/25 15:15 Diagnostic Test (Pha) 1 strip ACHS 04/01/25 17:00 04/01/25 22:17 1 STRIP Insulin Human Regular HS SC 04/01/25 22:00 04/01/25 22:17 3 UNITS objective GENERAL: Alert and oriented x 3. No acute distress. EYES: PERRL, EOMI. Anicteric. HENT: Moist mucous membranes. LUNGS: Clear to auscultation bilaterally. CARDIOVASCULAR: Regular rate and rhythm. ABDOMEN: Soft, nontender and nondistended. EXTREMITIES: No edema. NEUROLOGIC: No focal neurological deficits. SKIN: Warm, dry. laboratory and microbiology Laboratory Tests 03/31/25 05:59 Test 03/31/25 05:59 Range/Units Serum Glucose 146 H 74-106 mg/dL Problem List Chest pain of unknown etiology. New onset type 2 diabetes mellitus. Palpitations. Uncontrolled diabetes mellitus. Assessment/Plan Continued all current supportive medical care. [place] for pain management. Zofran. Additional plan as per the hospital course. Dietary Evaluation Review Comments: Monitor PO intake, lab values, weight trend, and I/O Expected Outcomes/Goals: Intake to meet >75% estimated needs Lab values to improve FU 3-5 days Plan discussed with: Patient SELINA OCHOA MD Apr 01, 2025 22:41
[2025-04-02] VITALS (7 sets, daily range): BP systolic 113–125; BP diastolic 67–79; PULSE 55–64; RESP 14–18; TEMP 97.5–98.6; O2SAT 97–98
[2025-04-02] MEDS ORDERED: METF-370 PO (18:21)
--- NOTE | 2025-04-02 18:24 | DVHDS2 ---
Discharge Summary Date of Admission Mar 30, 2025 at 21:14 Date of Discharge: Apr 02, 2025 Labs/Diagnostic Data: Laboratory Results Test 04/02/25 11:20 03/31/25 17:57 03/31/25 05:59 03/30/25 14:43 POC Glucose 135 mg/dl (70-106) D-Dimer, Quantitative 0.32 mg/L FEU (0.0-0.49) Troponin I High Sensitivity 16 ng/L (</=54) White Blood Count 5.5 10^3/uL (4.4-10.8) Red Blood Count 4.30 10^6/uL (4.5-5.90) Hemoglobin 14.6 g/dL (13.5-17.5) Hematocrit 41.9 % (41.0-53.0) Mean Corpuscular Volume 97.5 fL (80.0-100.0) Mean Corpuscular Hemoglobin 34.0 pg (28.0-32.0) Mean Corpuscular Hemoglobin Concent 34.9 g/dL (32.0-36.0) Red Cell Distribution Width 12.9 % (11.8-14.3) Platelet Count 182 10^3/uL (140-450) Mean Platelet Volume 8.2 fL (6.9-10.8) Neutrophils (%) (Auto) 51.7 % (37.0-80.0) Lymphocytes (%) (Auto) 33.6 % (10.0-50.0) Monocytes (%) (Auto) 11.0 % (0.0-12.0) Eosinophils (%) (Auto) 2.6 % (0.0-7.0) Basophils (%) (Auto) 1.1 % (0.0-2.0) Neutrophils # (Auto) 2.8 10 ^3/uL (1.6-8.6) Lymphocytes # (Auto) 1.8 10 ^3/uL (0.4-5.4) Monocytes # (Auto) 0.6 10 ^3/uL (0-1.3) Eosinophils # (Auto) 0.1 10 ^3/uL (0-0.8) Basophils # (Auto) 0.1 10 ^3/uL (0-0.2) Nucleated Red Blood Cells 0.1 % Sodium Level 142 mmol/L (136-145) Potassium Level 4.1 mmol/L (3.5-5.1) Chloride Level 105 mmol/L (98-107) Carbon Dioxide Level 29 mmol/L (20-31) Anion Gap 8 (5-15) Blood Urea Nitrogen 15 mg/dL (9-23) Creatinine 0.93 mg/dL (0.700-1.30) Glomerular Filtration Rate Calc 94 mL/min (>90) BUN/Creatinine Ratio 16.1 (10.0-20.0) Serum Glucose 146 mg/dL (74-106) Calcium Level 9.0 mg/dL (8.7-10.4) Total Bilirubin 1.6 mg/dL (0.2-1.0) Aspartate Amino Transferase (AST) 13 U/L (13-40) Alanine Aminotransferase (ALT) 13 U/L (7-40) Alkaline Phosphatase 90 U/L (46-116) Total Protein 6.2 g/dL (5.7-8.2) Albumin 3.7 g/dL (3.2-4.8) Hemoglobin A1c 7.2 % A1C (<5.7) Other Laboratory Tests 03/31/25 05:59 Brief Hx & Hospital Course: 59-year-old male with a no significant past medical history initially admitted to the hospital with the chest pain eventually patient was found to have new onset of diabetes mellitus type 2. Patient was managed with a low-dose sliding scale hemoglobin A1c 7.2. Patient will be discharged on metformin with a close follow up as an outpatient with the PCP in one week. Patient was seen by Cardiology and cleared to be discharged. Condition at Discharge: Stable Final Diagnosis/Problems List 1. chest pain ruled out [place] 2. New onset of diabetes mellitus type 2 3. Episode of hypoglycemia with a moderate dose sliding scale 4. Uncontrolled diabetes mellitus type 2 Discharge Disposition: Home SNF Discharge Will this Physician continue t: No Discharge Instruct/Medications Diet: Cardiac 2g Na,low cholest Diet comment: 1800 ADA diet Activity: No Restrictions, As Tolerated Follow Up/Referral: Please follow up with the PCP in 1-2 weeks Medications: Metformin as prescribed. New Medications: Metformin Hydrochloride (Metformin Hcl) 500 Mg Tab 1 TAB PO BID, #60 TAB 3 Refills Scheduled Metformin Hydrochloride (Metformin Hcl), 1 TAB PO BID Discharge Statement: "Patient was advised to return to the ER or call 911 if any headaches, dizziness, shortness of breath, chest pain, abdominal pain, bleeding, fevers, or worsening of medical condition. Patient was counseled about treatment plan, medications, possible side effects, patientverbalized understanding. All questions were answered to the best of my ability. This discharge took greater then 30 minutes in planning, reviewing documentation, counseling the patient, and discussing with other team members." ASSESSMENT ASSESSMENT Assessment -year-old male with who initially presented to the hospital with a chest pain found to have 1. chest pain ruled out [place] 2. New onset of diabetes mellitus type 2 3. Episode of hypoglycemia with a moderate dose sliding scale 4. Uncontrolled diabetes mellitus type 2 Date of Service: Apr 02, 2025 Billing Provider: KIRILL LEVY MD Common Visit Codes: [id number] DISCH DAY >30min KIRILL LEVY MD Apr 02, 2025 18:24
--- NOTE | 2025-04-03 00:11 | DVHPN2 ---
Progress Note - Dictate Date Seen: Apr 02, 2025 Medical Necessity Reason Pt with a Central, PICC or Fol: No Subjective Patient was seen and evaluated in follow up. Patient has no new complaints at this time. Patient denies any cardiac symptoms. Patient is cardiac stable for discharge. Telemetry reviewed. vital signs Vital Sign Date Time Temp Pulse Resp B/P (MAP) Pulse Ox O2 Delivery O2 Flow Rate FiO2 04/02/25 08:41 98.2 58 16 113/67 (82) 98 98.2 04/01/25 20:00 Room Air* 0 21 Total Intake and Output 04/01/25 04/01/25 04/02/25 15:00 23:00 07:00 Intake Total 2077 ml 700 ml Balance 2077 ml 700 ml medications Current Medications Medications Dose Ordered Sig/Enoch Route Start Time Stop Time Status Last Admin Dose Admin Sodium Chloride 10 ml Q8HR IV 03/30/25 22:00 04/02/25 06:00 10 ML Acetaminophen/ Hydrocodone Bitart 1 tab Q4HP PRN PO 03/30/25 20:45 Ondansetron HCl 4 mg Q4HP PRN IV 03/30/25 20:45 Docusate Sodium 100 mg BIDPRN PRN PO 03/30/25 20:45 Acetaminophen 650 mg Q6HP PRN PO 03/30/25 20:45 Insulin Human Regular AC SC 04/01/25 17:00 04/02/25 06:34 2 UNITS Dextrose 50 ml UD PRN IV 04/01/25 15:15 Diagnostic Test (Pha) 1 strip ACHS 04/01/25 17:00 04/02/25 11:26 1 STRIP Insulin Human Regular HS SC 04/01/25 22:00 04/01/25 22:17 3 UNITS objective GENERAL: Alert and oriented x 3. No acute distress. EYES: PERRL, EOMI. Anicteric. HENT: Moist mucous membranes. LUNGS: Clear to auscultation bilaterally. CARDIOVASCULAR: Regular rate and rhythm. ABDOMEN: Soft, nontender and nondistended. EXTREMITIES: No edema. NEUROLOGIC: No focal neurological deficits. SKIN: Warm, dry. laboratory and microbiology Laboratory Tests 03/31/25 05:59 Test 03/31/25 05:59 Range/Units Serum Glucose 146 H 74-106 mg/dL Problem List Chest pain of unknown etiology. New onset type 2 diabetes mellitus. Palpitations. Uncontrolled diabetes mellitus. Assessment/Plan Continued all current supportive medical care. [place] for pain management. Zofran. Additional plan as per the hospital course. Dietary Evaluation Review Comments: Monitor PO intake, lab values, weight trend, and I/O Expected Outcomes/Goals: Intake to meet >75% estimated needs Lab values to improve FU 3-5 days Plan discussed with: Patient SELINA OCHOA MD Apr 02, 2025 13:52
[2025-04-09] MEDS ORDERED: BLOO1KIT60 XX (19:21)
== END 2025-04-02 19:12 | disposition home or self-care (01) | DRG 207 ==
LOC: ER 14:24 → EDBD 21:14 → OVERFLOW 21:14 → TELE-CENTR 21:15
PROVIDERS: ADMIT Internal Medicine; ATTEND Internal Medicine
DX: R00.2 Palpitations (principal); E11.65 Type 2 diabetes mellitus with hyperglycemia; F43.9 Reaction to severe stress, unspecified; Z83.3 Family history of diabetes mellitus; Z95.1 Presence of aortocoronary bypass graft
CPT/HCPCS: 36415; 80048; 80053; 82962; 83036; 84484; 85025; 85379; 93005; 93306; G0378; J1815